=== PATIENT | female | born 2000 | race American Indian/Alaskan Native ===

== ENCOUNTER 2019-02-07 00:08 | Emergency (ER) | payer OTHER, MEDICAID ==
[2019-02-07 01:13] LABS: Basophils % (Auto) 0.4 % (0.0-1.8); Hematocrit 28.2 % (30.3-42.9); Hemoglobin 8.4 gm/dl (10.1-14.3); Lymphocytes # (Auto) 1.2 K/mm3 (1.2-5.4); Lymphocytes % (Auto) 12.8 % (13.4-35.0); Mean Corpuscular HGB Conc 30 % (30-34); Monocytes # (Auto) 0.6 K/mm3 (0.0-0.8); Monocytes % (Auto) 6.3 % (0.0-7.3); Platelet Count 468 K/mm3 (140-440); Red Blood Count 5.04 M/mm3 (3.65-5.03)
[2019-02-07] MEDS ORDERED: HYDROGEN PEROXIDE ONE (01:22)
[2019-02-07] MEDS ORDERED: NACL 0.9% 500 ML IR ONE (01:23)
[2019-02-07 01:29] LABS: Mean Corpuscular Volume 56 fl (79-97); Red Cell Distribution Width 21.4 % (13.2-15.2)
[2019-02-07 01:33] LABS: BUN/Creatinine Ratio 18; Blood Urea Nitrogen 11 mg/dL (7-17); Calcium 9.3 mg/dL (8.4-10.2); Hemolysis Index 2
[2019-02-07] MEDS ORDERED: BOOSTRIX IM ONE (02:13)
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
[2019-02-07 02:49] VITALS: BP 122/78
== END 2019-02-07 03:45 | disposition home or self-care (01) ==
LOC: ED 00:08
DX: S00.93XA Contusion of unspecified part of head, initial encounter (principal); M54.2 Cervicalgia; R07.89 Other chest pain; R10.9 Unspecified abdominal pain; D50.9 Iron deficiency anemia, unspecified; F12.10 Cannabis abuse, uncomplicated; Z87.891 Personal history of nicotine dependence; Y00.XXXA Assault by blunt object, initial encounter; Y93.89 Activity, other specified; Y92.89 Other specified places as the place of occurrence of the external cause; Y99.8 Other external cause status
CPT/HCPCS: 36415; 70450; 72125; 80048; 84703; 85025; 86850; 86900; 86901; 90471; 90715